=== PATIENT | female | born 1955 | race Two or more races ===

== ENCOUNTER 2024-12-29 10:09 | Day surgery (SDC) | payer MEDICARE, MEDICAID ==
--- NOTE | 2024-12-22 14:42 | ELECTROCARDIOGRAPH REPORT ---
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 ODALIS Wetzel Measurements Intervals [place] Rate: 60 P: 73 PA: 161 QRS: 41 QRSD: 100 T: 59 QT: 428 QTc: 428 Interpretive Statements Sinus rhythm Electronically Signed On 12-22-2024 17:24:[address] ODALIS Wetzel Please click the below link to view image of tracing.
[2024-12-22 14:51] LABS: BASOPHILS # (AUTO) 0.1 X10'3 (0-0.2); BASOPHILS % (AUTO) 0.9 % (0-1); EOSINOPHILS # (AUTO) 0.1 X10'3 (0-0.9); EOSINOPHILS % (AUTO) 1.9 % (0-6); LYMPHOCYTES % (AUTO) 30.8 % (21-51); MEAN CORPUSCULAR HEMOGLOBIN 31.2 PG (27.0-31.0); MEAN CORPUSCULAR VOLUME 94.7 FL (78-98); MEAN PLATELET VOLUME 8.6 FL (7.4-10.4); MONOCYTES # (AUTO) 0.5 X10'3 (0-0.9); MONOCYTES % (AUTO) 7.3 % (2-12); NEUTROPHILS # (AUTO) 3.9 X10'3 (1.8-7.7); NEUTROPHILS % (AUTO) 59.1 % (42-75); PRE OP HEMATOCRIT 41.3 % (35.0-45.0); PRE OP HEMOGLOBIN 13.6 g/dL (12.0-16.0); PRE OP PLATELET COUNT 305 X10'3 (140-440); PRE OP WHITE BLOOD COUNT 6.6 10'3 (4.8-10.8); RED BLOOD COUNT 4.36 X10'6 (4.20-5.60); RED CELL DISTRIBUTION WIDTH 13.7 % (11.5-14.5)
[2024-12-22 15:02] LABS: PRE OP PROTIME 10.3 SECONDS (9.0-12.0)
[2024-12-22 15:09] LABS: ALBUMIN 3.6 G/DL (3.4-5.0); ALBUMIN/GLOBULIN RATIO 0.9 (1.1-1.5); ALKALINE PHOSPHATASE 121 IU/L (46-116); BLOOD UREA NITROGEN 15 MG/DL (7-18); CHLORIDE 108 MMOL/L (99-107); CREATININE 0.75 MG/DL (0.40-0.90); PRE OP ALT 19 U/L (30-65); PRE OP ANION GAP 11 (8-16); PRE OP AST 25 U/L (10-37); PRE OP BILIRUB, TOTAL 0.3 MG/DL (0.0-1.0); PRE OP GLUCOSE 91 MG/DL (70-104); PRE OP POTASSIUM 4.3 MMOL/L (3.4-5.1); PRE OP SODIUM 141 MMOL/L (135-145); TOTAL CARBON DIOXIDE 22.2 MMOL/L (24-32); TOTAL PROTEIN 7.4 G/DL (6.4-8.2); eGFR 77 ML/MIN
[~2024-12-29] VITALS: Ht 162.6 cm; Wt 84.9 kg
[2024-12-29] VITALS (18 sets, daily range): BP systolic 114–145; BP diastolic 57–86; PULSE 57–84; RESP 10–16; TEMP 98.8; O2SAT 94–100
[2024-12-29] MEDS: ceFAZolin 2gm in dextrose, iso 50 ML IV ONE (05:30)
[~2024-12-29 10:09] MED LIST: ALBU18HF2 INH; CELE-193 PO; PANT20TA18 PO; TUMERIC PO
[2024-12-29] MEDS: famotidine 20mg tablet PO ONE (10:52)
[2024-12-29] MEDS: ringers solution, lacted 1,000 ML IV SCH (10:53)
[2024-12-29] MEDS ORDERED: fentaNYL/PF 50MCG/1 ML 2ML syringe IV PRN (11:20)
[2024-12-29] MEDS ORDERED: labetalol 20mg/4ml (5mg/ml) syringe IV PRN (11:20)
[2024-12-29] MEDS ORDERED: HYDROmorphone/PF 0.2 MG/ML SYRINGE IV PRN (11:20)
[2024-12-29] MEDS ORDERED: hydrALAZINE 20mg/ml inj. IV PRN (11:20)
[2024-12-29] MEDS ORDERED: ondansetron/PF 4mg/2ml inj IV PRN (11:20)
[2024-12-29] MEDS ORDERED: ringers solution, lacted 1,000 ML IV SCH (11:20)
[2024-12-29] MEDS ORDERED: dexmedetomidine 200mcg/2ml inj. IV ONE (12:41)
[2024-12-29] MEDS ORDERED: BUPIVAcaine 2.5mg/ml inj 50ml vial (contains preservative) ONE (12:53)
[2024-12-29] MEDS ORDERED: methylene blue (5mg/ml) 50mg/10ml ampul IV ONE (12:53)
[2024-12-29] MEDS ORDERED: BUPIVACAINE liposomal/PF 13.3 MG/ML 10mL vial IM ONE (12:53)
[2024-12-29] MEDS ORDERED: LIDOcaine 1% (10mg/ml)w/preservative inj. 20ml MDV ONE (12:53)
[2024-12-29] MEDS ORDERED: sevoflurane 250ml liquid IH ONE (13:20)
[2024-12-29] MEDS ORDERED: fentaNYL/PF 50MCG/1 ML 2ML syringe ONE (13:35)
[2024-12-29] MEDS ORDERED: ondansetron/PF 4mg/2ml inj ONE (13:49)
[2024-12-29] MEDS ORDERED: LIDOcaine 2% (20mg/ml) 5ml vial ONE (13:49)
[2024-12-29] MEDS ORDERED: propofol inj 20 ML IV ONE (13:49)
[2024-12-29] MEDS: methylene blue (5mg/ml) 50mg/10ml ampul IV ONE (13:54)
[2024-12-29] MEDS: fentaNYL/PF 50MCG/1 ML 2ML syringe IV PRN (15:13)
--- NOTE | 2024-12-29 15:19 | OPERATIVE REPORT ---
Operative Report Providers to CC CC: SAGAR GLEZ DO ~ Date of Procedure: December 29, 2024 Pre-Operative Diagnosis: right breast Post-Operative Diagnosis SAME as PRE-Op Procedure Performed right breast wire localized lumpectomy and right axillary sentinel node biopsy Surgeon: Dr. 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 She was seen and evaluated in my office and had a workup. Based on a discussion regarding the surgical procedure and the risks and benefits and alternatives to the surgery we decided to move forward with breast conservation. She had a nuclear medicine injection this morning at [facility] and a wire placed in her right breast at [facility]. She presented to the preoperative holding area and was evaluated by myself and the anesthesiologist. She had antibiotics at the bedside, SCDs in the lower extremities. I marked the right breast with my initials. She was taken into the OR and placed on the table in supine position with his arms extended. General anesthesia was administered with an LMA. The dressings were removed from the breast and the wire was cut short. I scanned the breast and the axilla with the true node probe and detected hot activity at both sites. I injected 3 mL of methylene blue dye at the 9:00 area subareolar massaged for 4 minutes. The wire was located in the upper outer quadrant I therefore used one incision to perform both procedures. The low axillary proposed incision was made with a marking pen and injected with 1% lidocaine. My incision was made with a 15 blade. I placed in retractors at the edges of the incision. I dissected through the subcutaneous plane to pull the wire into the cavity. Once the cavity was created I placed the larger Gurrola retractors into the cavity and dissected around the wire circumferentially around the breast tissue and deep to it. The specimen was removed from the cavity and oriented with short stitch superior long suture lateral double suture deep. It was placed in the specimen radiograph board and two images were taken. The clip and the wire were identified. The cavity was irrigated with normal saline solution and hemostasis was achieved with Bovie electrocautery. The specimen was placed in the specimen container with formalin and sent for permanent evaluation. I turned my attention to the right axillary sentinel lymph node biopsy. This was performed via the same incision lateral to the pectoralis major muscle I dissected through the axillary fascia. Once in the fascia I used the probe to identify a hot spot. There was no evidence of blue dye I grafts the edge of the lymph node were the activity was elevated with a tonsil clamp and excised it with the LigaSure. The specimen was removed from the cavity and the count was 973. The specimen was placed in formalin off the field. Hemostasis was achieved with Bovie electrocautery and I identified a 2nd hot spot a little further superior from the original site. This lymph node was excised in the same fashion. A count was taken outside of the cavity was 267. It was placed in formalin and sent for permanent evaluation. The axillary cavity was irrigated and hemostasis was achieved with cautery and the LigaSure. The axillary fascia was approximated with 3-0 Vicryl suture. The breast cavity was re-evaluated in the sponge was removed from the cavity. There was no evidence of bleeding hemostasis had been achieved and persistent. The edge of the cavity in the upper outer quadrant was approximated with 3-0 Vicryl marlo sutures and the skin was closed with 3-0 Vicryl interrupted sutures and a 4-0 Monocryl running subcuticular stitch. The skin was cleaned and 0.25% Marcaine mixed with Exparel with a% mixed was injected at the site. Dermabond was placed on the skin and sterile dressings and a balled Snowball pressure dressing was placed in the axillary space. Patient tolerated procedure well a breast binder was placed on her and she was taken to recovery in stable condition without complication. Counts repoted as correct: Yes SAGAR GLEZ DO December 29, 2024 15:19
[2024-12-29] MEDS: HYDROmorphone/PF 0.2 MG/ML SYRINGE IV PRN (16:10)
[2024-12-29] MEDS: traMADol 50MG tablet PO ONE (16:53)
== END 2024-12-29 18:39 | disposition home or self-care (01) ==
LOC: PAS 10:09
PROVIDERS: ATTEND Surgery
DX: C50.411 Malignant neoplasm of upper-outer quadrant of right female breast (principal); E03.9 Hypothyroidism, unspecified; Z79.899 Other long term (current) drug therapy; Z79.01 Long term (current) use of anticoagulants; Z98.890 Other specified postprocedural states
CPT/HCPCS: 19301; 36415; 38525; 38900; 76098; 80053; 82948; 85025; 85610; 85730; 93005; A4215; A4618; A6258; A7000; J0666; J0690; J1100; J1171; J2003; J2405; J2704; J3010; J3490; J7030; J7120; Q9968; Z7506; Z7508; Z7512; Z7610